=== PATIENT | female | born 1955 | race Caucasian/White ===

== ENCOUNTER → 2023-10-31 07:07 | Outpatient (REF) | payer MEDICARE, BC, SELFPAY | LOC: MRI 07:07 | PROVIDERS: ATTENDING PHYSICIAN Specialist; FAMILY PHYSICIAN Family Medicine | DX: M54.50 Low back pain, unspecified (principal) | CPT/HCPCS: 72148 ==

== ENCOUNTER → 2024-04-17 11:01 | Outpatient (REF) | payer MEDICARE, BC, SELFPAY | LOC: WDC 11:01 | PROVIDERS: ATTENDING PHYSICIAN Family Medicine | DX: Z12.31 Encounter for screening mammogram for malignant neoplasm of breast (principal) | CPT/HCPCS: 77063; 77067 ==

== ENCOUNTER → 2024-10-09 11:03 | Outpatient (REF) | payer MEDICARE, BC, SELFPAY | LOC: RAD 11:03 | PROVIDERS: ATTENDING PHYSICIAN Specialist; FAMILY PHYSICIAN Family Medicine | DX: M48.062 Spinal stenosis, lumbar region with neurogenic claudication (principal) | CPT/HCPCS: 72114 ==

== ENCOUNTER 2024-12-09 06:19 | Day surgery (SDC) | payer MEDICARE, BC, SELFPAY | END 2024-12-09 08:32 | disposition home or self-care (01) | LOC: GI 06:19 | PROVIDERS: ATTENDING PHYSICIAN Internal Medicine | DX: Z12.11 Encounter for screening for malignant neoplasm of colon (principal); D12.0 Benign neoplasm of cecum; K63.5 Polyp of colon; K57.30 Diverticulosis of large intestine without perforation or abscess without bleeding; Z86.0100 Personal history of colon polyps, unspecified | CPT/HCPCS: 45380; 88305 ==

== ENCOUNTER 2025-03-24 06:06 | Day surgery (SDC) | payer MEDICARE, BC, SELFPAY ==
[2025-03-24 08:10] VITALS: BMI 27.5
[2025-03-24 08:15] VITALS: BP 122/81
[2025-03-24 08:35] VITALS: BMI 27.5
[2025-03-24 10:26] VITALS: BP 106/64
[2025-03-24 10:30] VITALS: BP 100/74
[2025-03-24 10:45] VITALS: BP 110/74
== END 2025-03-24 10:24 | disposition home or self-care (01) ==
LOC: GI 06:06
PROVIDERS: ATTENDING PHYSICIAN Internal Medicine Gastroenterology
DX: D12.0 Benign neoplasm of cecum (principal); K64.0 First degree hemorrhoids; K57.30 Diverticulosis of large intestine without perforation or abscess without bleeding
CPT/HCPCS: 45390; 88305